=== PATIENT | female | born 1985 | race Caucasian/White ===

== ENCOUNTER → 2018-12-30 | Outpatient (REF) ==
--- NOTE | 2018-12-31 02:31 | REP ---
Clinical: Pain and disability. Technique: AP, lateral, coned-down views. Findings: Alignment and lordosis maintained. Minimal endplate sclerosis and very subtle early spurring noted. No acute fracture / compression injury or subluxation. Impression: Essentially age-appropriate lumbosacral spine series. If the patient remains symptomatic consider MRI for further investigation. Electronically Signed by Marcos Burrell MD 12/31/2018 02:22 A
== END ==
LOC: M SMT 12:57
PROVIDERS: ATTEND Internal Medicine
DX: Z02.89 Encounter for other administrative examinations (principal)